=== PATIENT | male | born 1960 | race Caucasian/White ===

== ENCOUNTER 2024-04-15 13:43 | Emergency (ER) | payer MEDICARE, OTHER ==
[~2024-04-15] VITALS: Ht 165.1 cm; Wt 79.4 kg
[2024-04-15] MEDS ORDERED: IBUP-1955 PO (15:06)
[2024-04-15] MEDS ORDERED: CYCL5TAB PO (15:06)
[2024-04-15] MEDS ORDERED: LIDO30AD10 TP (15:06)
[2024-04-15 15:33] VITALS: BP 129/81; TEMP 98.2; O2SAT 99
== END 2024-04-15 15:34 | disposition home or self-care (01) ==
LOC: ER 13:45
DX: S29.012A Strain of muscle and tendon of back wall of thorax, initial encounter (principal); S16.1XXA Strain of muscle, fascia and tendon at neck level, initial encounter; S20.211A Contusion of right front wall of thorax, initial encounter; S09.8XXA Other specified injuries of head, initial encounter; R51.9 Headache, unspecified; I10 Essential (primary) hypertension; X58.XXXA Exposure to other specified factors, initial encounter; Y93.9 Activity, unspecified; Y92.89 Other specified places as the place of occurrence of the external cause; Y99.8 Other external cause status
CPT/HCPCS: 70450-TC; 71100-TC; 72125-TC